=== PATIENT | female | born 1990 | race African-American/Black ===

== ENCOUNTER 2017-02-06 21:32 | Emergency (ER) | payer SELFPAY ==
[~2017-02-06] VITALS: Ht 170.2 cm; Wt 55.0 kg
[~2017-02-06 21:32] MED LIST: CLIN150 PO; DIPH2%T PO; Z.0.BCPILL PO
[2017-02-06 21:35] VITALS: BP 176/111; PULSE 92; RESP 18; TEMP 99.1; O2SAT 97
--- NOTE | 2017-02-06 22:44 | PD ---
HPI Chief Complaint: Chest Pain Time Seen by Provider: 22:36 Travel History International Travel<30 days: No Contact w/Intl Traveler<30days: No Traveled to known affect area: No History of Present Illness HPI 26yo F with PMH of HTN on atenolol presents to the ED with c/o midsternal chest pain for 3 hours. Pain is sharp and worst with movement. Associated with mild sob and nausea. Denies any focal weakness, focal numbness, fever, cough, vomiting, abdominal pain. No family history of early cardiac . No cig smoking or drug use. Pt has implanted control. Denies any history of PE/ DVT, recent surgery, immobilization. PFSH Past Medical History Diminished Hearing: No Immunizations Current: Yes : 4 Para: 1 Miscarriage: 2 Social History Alcohol Use: No Tobacco Use: No Substance Use: No Allergies-Medications (Allergen,Severity, Reaction): Coded Allergies: No Known Allergies (Verified , 02/08/15) Reported Meds & Prescriptions Reported Meds & Active Scripts Active Reported Atenolol 25 Mg Tab 25 Mg PO DAILY Review of Systems Except as stated in HPI: all other systems reviewed are Neg Physical Exam Narrative GENERAL: 26yo F not in distress. SKIN: Focused skin assessment warm/dry. HEAD: Atraumatic. Normocephalic. CARDIOVASCULAR: Regular rate and rhythm. No murmur appreciated. RESPIRATORY: No accessory muscle use. Clear to auscultation. Breath sounds equal bilaterally. CHEST WALL: No rash. +TTP sternum. GASTROINTESTINAL: Abdomen soft, non-tender, nondistended. MUSCULOSKELETAL: No obvious deformities. No clubbing. No cyanosis. No edema. NEUROLOGICAL: Awake and alert. No obvious cranial nerve deficits. Motor grossly within normal limits. Normal speech. PSYCHIATRIC: Appropriate mood and affect; insight and judgment normal. Data Data Last Documented VS Vital Signs Date Time Temp Pulse Resp B/P Pulse Ox O2 Delivery O2 Flow Rate FiO2 02/07/17 00:22 84 18 131/82 100 Room Air 02/06/17 21:35 99.1 Orders Electrocardiogram (02/06/17 22:40) Basic Metabolic Panel (Bmp) (02/06/17 22:40) Ckmb (Isoenzyme) Profile (02/06/17 22:40) Complete Blood Count With Diff (02/06/17 22:40) D-Dimer (02/06/17 22:40) Magnesium (Mg) (02/06/17 22:40) Prothrombin Time / Inr (Pt) (02/06/17 22:40) Act Partial Throm Time (Ptt) (02/06/17 22:40) Troponin I (02/06/17 22:40) Chest, Single Ap (02/06/17 22:40) Ecg Monitoring (02/06/17 22:40) Bilateral Bp Monitoring (02/06/17 22:40) Iv Access Insert/Monitor (02/06/17 22:40) Oximetry (02/06/17 22:40) Oxygen Administration (02/06/17 22:40) Ibuprofen (Motrin) (02/06/17 22:45) CKMB (02/06/17 23:00) CKMB% (02/06/17 23:00) Potassium Chloride (Kcl) (02/07/17 00:30) Labs Laboratory Tests Test 02/06/17 23:00 White Blood Count 7.8 TH/MM3 Red Blood Count 4.49 MIL/MM3 Hemoglobin 10.3 GM/DL Hematocrit 32.9 % Mean Corpuscular Volume 73.3 FL Mean Corpuscular Hemoglobin 23.0 PG Mean Corpuscular Hemoglobin 31.3 % Concent Red Cell Distribution Width 17.9 % Platelet Count 278 TH/MM3 Mean Platelet Volume 8.9 FL Neutrophils (%) (Auto) 62.8 % Lymphocytes (%) (Auto) 27.6 % Monocytes (%) (Auto) 5.3 % Eosinophils (%) (Auto) 2.9 % Basophils (%) (Auto) 1.4 % Neutrophils # (Auto) 4.9 TH/MM3 Lymphocytes # (Auto) 2.2 TH/MM3 Monocytes # (Auto) 0.4 TH/MM3 Eosinophils # (Auto) 0.2 TH/MM3 Basophils # (Auto) 0.1 TH/MM3 CBC Comment DIFF FINAL Differential Comment Prothrombin Time 10.4 SEC Prothromb Time International 0.9 RATIO Ratio Activated Partial 26.3 SEC Thromboplast Time D-Dimer Quantitative (PE/DVT) 0.22 MG/L FEU Sodium Level 140 MEQ/L Potassium Level 3.3 MEQ/L Chloride Level 106 MEQ/L Carbon Dioxide Level 26.5 MEQ/L Anion Gap 8 MEQ/L Blood Urea Nitrogen 12 MG/DL Creatinine 0.82 MG/DL Estimat Glomerular Filtration 101 ML/MIN Rate Random Glucose 86 MG/DL Calcium Level 8.7 MG/DL Magnesium Level 2.1 MG/DL Total Creatine Kinase 135 U/L Creatine Kinase MB LESS THAN 0.5 NG/ML Troponin I LESS THAN 0.02 NG/ML MDM Medical Decision Making Medical Screen Exam Complete: Yes Emergency Medical Condition: Yes Interpretation(s) EKG: NSR 80bpm. Normal axis. No ST segment elevation or depression. T wave flattening III, V4, V5. Laboratory Tests Test 02/06/17 23:00 White Blood Count 7.8 TH/MM3 (4.0-11.0) Red Blood Count 4.49 MIL/MM3 (4.00-5.30) Hemoglobin 10.3 GM/DL (11.6-15.3) Hematocrit 32.9 % (35.0-46.0) Mean Corpuscular Volume 73.3 FL (80.0-100.0) Mean Corpuscular Hemoglobin 23.0 PG (27.0-34.0) Mean Corpuscular Hemoglobin 31.3 % Concent (32.0-36.0) Red Cell Distribution Width 17.9 % (11.6-17.2) Platelet Count 278 TH/MM3 (150-450) Mean Platelet Volume 8.9 FL (7.0-11.0) Neutrophils (%) (Auto) 62.8 % (16.0-70.0) Lymphocytes (%) (Auto) 27.6 % (9.0-44.0) Monocytes (%) (Auto) 5.3 % (0.0-8.0) Eosinophils (%) (Auto) 2.9 % (0.0-4.0) Basophils (%) (Auto) 1.4 % (0.0-2.0) Neutrophils # (Auto) 4.9 TH/MM3 (1.8-7.7) Lymphocytes # (Auto) 2.2 TH/MM3 (1.0-4.8) Monocytes # (Auto) 0.4 TH/MM3 (0-0.9) Eosinophils # (Auto) 0.2 TH/MM3 (0-0.4) Basophils # (Auto) 0.1 TH/MM3 (0-0.2) CBC Comment DIFF FINAL Differential Comment Prothrombin Time 10.4 SEC (9.8-11.6) Prothromb Time International 0.9 RATIO Ratio Activated Partial 26.3 SEC Thromboplast Time (24.3-30.1) D-Dimer Quantitative (PE/DVT) 0.22 MG/L FEU (0.00-0.50) Sodium Level 140 MEQ/L (136-145) Potassium Level 3.3 MEQ/L (3.5-5.1) Chloride Level 106 MEQ/L (98-107) Carbon Dioxide Level 26.5 MEQ/L (21.0-32.0) Anion Gap 8 MEQ/L (5-15) Blood Urea Nitrogen 12 MG/DL (7-18) Creatinine 0.82 MG/DL (0.50-1.00) Estimat Glomerular Filtration 101 ML/MIN Rate (>89) Random Glucose 86 MG/DL (74-106) Calcium Level 8.7 MG/DL (8.5-10.1) Magnesium Level 2.1 MG/DL (1.5-2.5) Total Creatine Kinase 135 U/L (26-192) Creatine Kinase MB LESS THAN 0.5 NG/ML (0.5-3.6) Troponin I LESS THAN 0.02 NG/ML (0.02-0.05) Last Impressions Chest X-Ray 02/06/17 2240 Signed Impressions: Service Date/Time: January 22:55 - CONCLUSION: 1. No acute cardiopulmonary disease. Kenny Lerner MD Differential Diagnosis Musculoskeletal pain vs. costochondritis vs. PE vs. pneumonia vs. ACS Narrative Course 26yo F with atypical chest pain. Impression is more musculoskeletal as it is worst with movement and tender to palpation. Labs reviewed, no leukocytosis. H /H low at 10.3/32.9 but this is her baseline. Troponin negative. K: 3.3, replaced orally. D-dimer negative. CXR negative. Pt given ibuprofen and acetaminophen for pain. I do not think this chest pain is cardiac. Instructed pt to follow up with PMD. Return precautions given. Diagnosis Primary Impression: Atypical chest pain Patient Instructions: General Instructions Departure Forms: Tests/Procedures Additional Instructions: Please follow up with your PMD in 3-7 days. Return to the ED if symptoms worsen. Med/Other Pt SpecificInfo: Prescription(s) given Scripts Acetaminophen (Tylenol)325 Mg [id number] Mg PO Q6H PRN (PAIN SCALE 1 TO 4) #20 TAB Ref 0 Prov:Sheila Mishra DO 02/07/17 Disposition: 01 DISCHARGE HOME Condition: Stable Sheila Mishra DO Feb 06, 2017 22:44
[2017-02-06] MEDS ORDERED: IBUPROFEN 600 MG TAB PO ONE (22:45)
[2017-02-06 23:13] LABS: AUTOMATED NEUTROPHIL # 4.9 TH/MM3 (1.8-7.7); BASOPHIL # 0.1 TH/MM3 (0-0.2); BASOPHIL % 1.4 % (0.0-2.0); EOSINOPHIL # 0.2 TH/MM3 (0-0.4); EOSINOPHIL % 2.9 % (0.0-4.0); HEMATOCRIT 32.9 % (35.0-46.0); HEMO FLAGS DIFF FINAL; LYMPH % 27.6 % (9.0-44.0); LYMPHOCYTE # 2.2 TH/MM3 (1.0-4.8); MEAN CELL VOLUME 73.3 FL (80.0-100.0); MEAN CORPUSCULAR HGB CONC 31.3 % (32.0-36.0); MONO % 5.3 % (0.0-8.0); NEUT % 62.8 % (16.0-70.0); PLATELET COUNT 278 TH/MM3 (150-450); RED BLOOD COUNT 4.49 MIL/MM3 (4.00-5.30); RED CELL DISTRIBUTION WIDTH 17.9 % (11.6-17.2); WHITE BLOOD COUNT 7.8 TH/MM3 (4.0-11.0)
[2017-02-06 23:17] VITALS: BP 140/84; PULSE 76; RESP 18; O2SAT 99
[2017-02-06] MEDS ORDERED: ATEN25TA PO (23:17)
[2017-02-06 23:29] LABS: ANION GAP 8 MEQ/L (5-15); BICARBONATE 26.5 MEQ/L (21.0-32.0); BLOOD UREA NITROGEN 12 MG/DL (7-18); CHLORIDE 106 MEQ/L (98-107); GLOMERULAR FILTRATION RATE 101 ML/MIN (>89); MAGNESIUM 2.1 MG/DL (1.5-2.5); POTASSIUM 3.3 MEQ/L (3.5-5.1); SODIUM (NA) 140 MEQ/L (136-145)
[2017-02-06 23:32] LABS: CREATINE KINASE 135 U/L (26-192)
[2017-02-06 23:45] LABS: CKMB LESS THAN 0.5 NG/ML (0.5-3.6)
[2017-02-06 23:46] LABS: APTT (PATIENT) 26.3 SEC (24.3-30.1); INTERNATIONAL NORMALIZED RATIO 0.9 RATIO; PROTHROMBIN TIME - PATIENT 10.4 SEC (9.8-11.6)
--- NOTE | 2017-02-06 23:49 | RADRPT ---
EXAM DATE/TIME: 02/06/2017 22:55 [facility] COMPARISON: No previous studies available for comparison. INDICATIONS : Chest pain. MEDICAL HISTORY : None. SURGICAL HISTORY : None. ENCOUNTER: Initial ACUITY: 1 day PAIN SCORE: 9/10 LOCATION: chest FINDINGS: A single view of the chest demonstrates the lungs to be symmetrically aerated without evidence of mas s, infiltrate or effusion. The cardiomediastinal contours are unremarkable. Osseous structures are intact. CONCLUSION: 1. No acute cardiopulmonary disease. Kenny Lerner MD on February 06, 2017 at 23:47 Board Certified Radiologist. This report was verified electronically.
[2017-02-07 00:22] VITALS: BP 131/82; PULSE 84; RESP 18; O2SAT 100
[2017-02-07] MEDS ORDERED: TYLE325T PO (00:29)
[2017-02-07] MEDS ORDERED: POTASSIUM CHLORIDE 20 MEQ CONTROLLED RELEASE TAB PO ONE (00:30)
[2017-02-07] MEDS ORDERED: ACETAMINOPHEN 325 MG TAB PO ONE (00:30)
--- NOTE | 2017-02-07 22:33 | EKG ---
Date Performed: 02/06/2017 Time Performed: 22:56:18 PTAGE: 26 years EKG: Sinus rhythm NONSPECIFIC T-WAVE ABNORMALITY BORDERLINE ECG PREVIOUS TRACING : 11/08/2009 09.54 DOCTOR: Isaiah Vargas Interpretating Date/Time 02/07/2017 22:31:45
== END 2017-02-07 00:49 | disposition home or self-care (01) ==
LOC: NEPD 21:32
DX: R07.89 Other chest pain (principal); R06.02 Shortness of breath; R11.0 Nausea; R94.31 Abnormal electrocardiogram [ECG] [EKG]
CPT/HCPCS: 71010; 80048; 82550; 82552; 83735; 84484; 85025; 85379; 85610; 85730; 93005; 99285